=== PATIENT | female | born 1990 | race Caucasian/White ===

== ENCOUNTER 2018-11-14 22:03 | Emergency (ER) ==
[2018-11-14 22:23] VITALS: BP 114/73; TEMP 98.5; BMI 28.0
--- NOTE | 2018-11-14 23:41 | CT ---
EXAM: CT scan abdomen pelvis without contrast HISTORY: Lower abdominal pain COMPARISON: None. FINDINGS: Contiguous axial images obtained through the abdomen pelvis without contrast utilizing 3-m m collimation. Sagittal and coronal reconstructions were imaged and reviewed.. Visualized lung base s are clear.. The gallbladder is mildly contracted. The liver, pancreas, spleen and adrenal glands have normal unenhanced CT appearance. The kidneys are morphologically normal. The abdominal aorta i s normal in course and caliber. The appendix was not visualized. Bladder small volumed limiting aurora luation. There is a mild amount of stool noted throughout the colon. Bone windows reveals no eviden ce of lytic or blastic lesions IMPRESSION: No acute intra-abdominal findings
[2018-11-14] MEDS ORDERED: ROCEPHIN IM STA (23:48)
[2018-11-14] MEDS ORDERED: LIDOCAINE HCL 1% SDV IM STA (23:48)
--- NOTE | 2018-11-14 23:51 | ED.PDOC ---
General ED Provider: Dr. JONATHON GALVEZ-ER Chief Complaint: Abdominal Pain Stated Complaint: i think i have an infection Time Seen by Physician: 23:49 Mode of Arrival: Walk-In Information Source: Patient Exam Limitations: No limitations Nursing and Triage Documentation Reviewed and Agree: Yes Does patient meet sepsis criteria?: No System Inflammatory Response Syndrome: Not Applicable Sepsis Protocol: For patient's 13 years and over: Temp is 96.8 and below OR 101 and greater Pulse >90 BPM Resp >20/minute Acutely Altered Mental Status Are patient's symptoms suggestive of a new infection, such as: -Pneumonia -Skin, Soft Tissue -Endocarditis -UTI -Bone, Joint Infection -Implantable Device -Acute Abdominal Infection -Wound Infection -Meningitis -Blood Stream Catheter Infection -Unknown 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 Denies: Dizziness, Lightheadedness, Pale, UTI symptoms, Abdominal pain, Generalized pain Patient Rh Status: Unknown Abdominal Findings: Present: None Cervical Exam: Present: Discharge, Tenderness Adnexal Exam: Present: Normal Findings Differential Diagnoses: Vaginitis Review of Systems - Review Of Systems Constitutional: Reports: No symptoms Eyes: Reports: No symptoms Ears, Nose, Mouth, Throat: Reports: No symptoms Respiratory: Reports: No symptoms Cardiac: Reports: No symptoms GI: Reports: No symptoms : Reports: No symptoms Musculoskeletal: Reports: No symptoms Skin: Reports: No symptoms Neurological: Reports: No symptoms Endocrine: Reports: No symptoms Hematologic/Lymphatic: Reports: No symptoms All Other Systems: Reviewed and Negative Past Medical History - Past Medical History Previously Healthy: Yes Endocrine: Reports: Unknown Cardiovascular: Reports: Unknown Respiratory: Reports: Unknown Hematological: Reports: Unknown Gastrointestinal: Reports: Unknown Genitourinary: Reports: Unknown Neuro/Psych: Reports: Unknown Musculoskeletal: Reports: Unknown Cancer: Reports: Unknown Last Menstrual Period: LAST WEEK - Surgical History General Surgical History: Reports: Unknown - Family History Family History: Reports: Unknown - Social History Smoking Status: Current every day smoker, Heavy tobacco smoker Hx Substance Use: Yes (ECSTASY OCCASIONALLY) Alcohol Screening: None - Immunizations Tetanus Shot up to Date: Yes (2015) Physical Exam - Physical Exam Appearance: Well-appearing, No pain distress, Well-nourished Eyes: VENICE, EOMI, Conjunctiva clear ENT: Ears normal, Nose normal, Oropharynx normal Neck: Supple Respiratory: Airway patent, Breath sounds clear, Breath sounds equal, Respirations nonlabored Cardiovascular: RRR, Pulses normal, No rub, No murmur GI/: Soft, Nontender, No masses, Bowel sounds normal, No Organomegaly Musculoskeletal: Normal strength, ROM intact, No edema, No calf tenderness Skin: Warm, Dry, Normal color Neurological: Sensation intact, Motor intact, Reflexes intact, Cranial nerves intact, Alert, Oriented Psychiatric: Affect appropriate Interpretation - Radiology Interpretation Radiology Interpretation By: Radiologist Radiology Results: Negative Exam Interpreted: CT Scan Critical Care Note - Critical Care Note Total Time (mins): 0 Course - Course Hematology/Chemistry: 11/14/18 22:40 11/14/18 22:40 Orders, Labs, Meds: Lab Review 11/14/18 11/14/18 11/14/18 22:25 22:40 22:40 WBC 13.36 H RBC 4.21 Hgb 11.5 L Hct 35.9 L MCV 85.3 MCH 27.3 MCHC 32.0 RDW Coeff of Herman 14.3 Plt Count 261 Immature Gran % (Auto) 0.4 Neut % (Auto) 78.1 Lymph % (Auto) 14.7 [place] % (Auto) 5.4 Eos % (Auto) 1.1 Baso % (Auto) 0.3 Immature Gran # (Auto) 0.1 Neut # (Auto) 10.4 H Lymph # (Auto) 2.0 [place] # (Auto) 0.7 Eos # (Auto) 0.2 Baso # (Auto) 0.0 ESR 63 H Sodium 137.0 Potassium 3.63 Chloride 100.1 Carbon Dioxide 29.3 Anion Gap 11.23 BUN 11.0 Creatinine 0.74 Estimated GFR (MDRD) 92.00 BUN/Creatinine Ratio 14.86 Glucose 110.9 H Calcium 8.81 Total Bilirubin 0.25 AST 30.8 ALT 22.0 Alkaline Phosphatase 66.6 Total Protein 7.58 Albumin 4.24 Globulin 3.34 Albumin/Globulin Ratio 1.26 Amylase 42.0 Lipase 46.1 Serum , Qual Urine Color Yellow Urine Clarity Clear Urine pH 5.5 Ur Specific [place] 1.020 Urine Protein Negative Urine Glucose (UA) Negative Urine Ketones Negative Urine Blood Trace-lysed Urine Nitrite Negative Urine Bilirubin Negative Urine Urobilinogen 0.2 Ur Leukocyte Esterase 1+ Urine Microscopic RBC 0-2 Urine Microscopic WBC 0-2 Ur Squamous Epith Cells 2-5 Clue Cells (Wet Prep) Trichomonas (Wet Prep) Vaginal WBC KAVITA Preparation 11/14/18 11/14/18 22:40 22:45 WBC RBC Hgb Hct MCV MCH MCHC RDW Coeff of Herman Plt Count Immature Gran % (Auto) Neut % (Auto) Lymph % (Auto) [place] % (Auto) Eos % (Auto) Baso % (Auto) Immature Gran # (Auto) Neut # (Auto) Lymph # (Auto) [place] # (Auto) Eos # (Auto) Baso # (Auto) ESR Sodium Potassium Chloride Carbon Dioxide Anion Gap BUN Creatinine Estimated GFR (MDRD) BUN/Creatinine Ratio Glucose Calcium Total Bilirubin AST ALT Alkaline Phosphatase Total Protein Albumin Globulin Albumin/Globulin Ratio Amylase Lipase Serum , Qual Negative Urine Color Urine Clarity Urine pH Ur Specific [place] Urine Protein Urine Glucose (UA) Urine Ketones Urine Blood Urine Nitrite Urine Bilirubin Urine Urobilinogen Ur Leukocyte Esterase Urine Microscopic RBC Urine Microscopic WBC Ur Squamous Epith Cells Clue Cells (Wet Prep) None seen Trichomonas (Wet Prep) None seen Vaginal WBC Moderate KAVITA Preparation No fungal elements Orders Category Date Time Status AMYLASE Stat LAB 11/14/18 22:40 Completed CBC W/ AUTO DIFF Stat LAB 11/14/18 22:40 Completed CHLAMYDIA/GC AMPLIFICATION Stat LAB 11/14/18 22:45 Received COMPREHENSIVE METABOLIC PANEL Stat LAB 11/14/18 22:40 Completed ESR Stat LAB 11/14/18 22:40 Completed KAVITA PREP Stat LAB 11/14/18 22:45 Completed LIPASE Stat LAB 11/14/18 22:40 Completed SERUM Stat LAB 11/14/18 22:40 Completed URINALYSIS C & S IF INDICATED Stat LAB 11/14/18 22:25 Completed VAGINAL CULTURE [GENITAL CULTURE] Stat LAB 11/14/18 22:45 Received WET PREP Stat LAB 11/14/18 22:45 Completed Ceftriaxone Sodium [Rocephin] MEDS 11/14/18 23:48 Stat 250 mg IM ONCE STA Lidocaine HCl/Pf [Lidocaine HCl 1% Sdv] MEDS 11/14/18 23:48 Stat 0.9 ml IM ONCE STA CT ABDOMEN/PELVIS WO CONTRAST Stat RADS 11/14/18 22:28 Completed Medications Generic Name Dose Route Start Last Admin Trade Name Irineo PRN Reason Stop Dose Admin Ceftriaxone Sodium 250 mg 11/14/18 23:48 Rocephin IM 11/14/18 23:49 ONCE STA Lidocaine HCl 0.9 ml 11/14/18 23:48 Lidocaine Hcl 1% Sdv IM 11/14/18 23:49 ONCE STA Vital Signs: Temp Pulse Resp BP Pulse Ox 11/14/18 22:04 98.5 F 92 H 18 114/73 97 Departure - Departure Time of Disposition: 23:51 Disposition: HOME SELF-CARE Discharge Problem: PID (acute pelvic inflammatory disease) Instructions: Pelvic Inflammatory Disease (ED) Condition: Good Pt referred to PMD for follow-up: Yes IPMP verified?: No Additional Instructions: doxycycline 100mg q 12hrs #14 plus flagyl 250mg tid x 7days---f/u with band attacher Allergies/Adverse Reactions: Allergies guaifenesin [From Robitussin] Adverse Reaction (Verified 11/14/18 22:21) Hives Home Medications: Ambulatory Orders 1 [No Reported Medications] 11/14/18 Disposition Discussed With: Patient, Family
== END 2018-11-15 00:22 | disposition home or self-care (01) ==
LOC: ED 22:03 → EDBD 22:03 → MERGE 22:03 → ED 11-15 00:22
DX: N73.9 Female pelvic inflammatory disease, unspecified (principal); F17.210 Nicotine dependence, cigarettes, uncomplicated
CPT/HCPCS: 36415; 80053; 81001; 82150; 83690; 84703; 85025; 85651; 87070; 87210; 87800; 96372; 99283